=== PATIENT | female | born 1995 | race Caucasian/White ===

== ENCOUNTER 2017-10-23 12:00 | Emergency (ER) | payer SELFPAY ==
[~2017-10-23] VITALS: Ht 165.1 cm; Wt 64.9 kg
[2017-10-23 12:08] VITALS: BP 111/82; Ht 165.1 cm; Wt 64.9 kg
== END 2017-10-23 14:32 | disposition home or self-care (01) ==
LOC: ED 12:00
DX: J45.901 Unspecified asthma with (acute) exacerbation (principal)
CPT/HCPCS: J7512; J7613

== ENCOUNTER 2017-11-09 16:27 | Emergency (ER) | payer OTHER ==
[~2017-11-09] VITALS: Ht 167.6 cm; Wt 63.5 kg
[2017-11-09 16:39] VITALS: Ht 167.6 cm; Wt 63.5 kg
[2017-11-09 19:31] VITALS: BP 105/76
== END 2017-11-09 19:31 | disposition home or self-care (01) ==
LOC: ED 16:27
DX: Z76.0 Encounter for issue of repeat prescription (principal); D50.9 Iron deficiency anemia, unspecified; J45.909 Unspecified asthma, uncomplicated